=== PATIENT | male | born 1985 | race Caucasian/White ===

== ENCOUNTER 2022-12-10 14:20 | Outpatient (REF) | payer OTHER, SELFPAY ==
[2022-12-10 14:34] LABS: MANUAL DIFF FLAG NO
[2022-12-10 14:49] LABS: Basophils Percent Auto 0.7 % (0-2); Eosinophils Absolute Auto 0.2 X10*3/uL (0.0-0.4); Eosinophils Percent Auto 3.7 % (0-4); Hemoglobin 14.3 g/dl (14.0-18.0); Imm Gran Abs Auto 0.08 X10*3/uL (0.00-0.03); Imm Gran Pct Auto 1.4 % (0.0-0.4); Lymphocytes Absolute Auto 1.3 X10*3/uL (1.2-4.9); Mean Corpuscular HGB Conc 32.5 g/dl (31.0-36.0); Mean Corpuscular Hemoglobin 26.1 pg (27.0-33.0); Mean Corpuscular Volume 80.3 fL (80.0-98.0); Monocytes Percent Auto 18.2 % (2-11); Platelet Count 211 X10*3/uL (160-400); Red Blood Count 5.48 X10*6/uL (4.60-5.80); Red Cell Distribution Width 13.2 % (11.0-16.0); White Blood Count 5.7 X10*3/uL (4.8-10.8)
== END 2022-12-10 14:21 | disposition home or self-care (01) ==
LOC: HO.LAB 14:20
PROVIDERS: Visit Provider Internal Medicine Pulmonary Disease
DX: Z91.09 Other allergy status, other than to drugs and biological substances (principal)
CPT/HCPCS: 36415; 82785; 85025; 86003

== ENCOUNTER 2023-01-06 13:40 | Outpatient (REF) | payer OTHER, SELFPAY | END 2023-01-06 13:41 | disposition home or self-care (01) | LOC: HO.MDS 13:40 | PROVIDERS: Visit Provider Internal Medicine Pulmonary Disease | DX: J45.50 Severe persistent asthma, uncomplicated (principal) | CPT/HCPCS: 96372; J2357 ==

== ENCOUNTER 2023-02-03 13:20 | Outpatient (REF) | payer OTHER, SELFPAY | END 2023-02-03 13:21 | disposition home or self-care (01) | LOC: HO.MDS 13:20 | PROVIDERS: Visit Provider Internal Medicine Pulmonary Disease | DX: J45.50 Severe persistent asthma, uncomplicated (principal) | CPT/HCPCS: 96372; J2357 ==

== ENCOUNTER 2023-03-08 11:59 | Outpatient (REF) | payer OTHER, SELFPAY | END 2023-03-08 12:00 | disposition home or self-care (01) | LOC: HO.MDS 11:59 | PROVIDERS: Visit Provider Internal Medicine Pulmonary Disease | DX: J45.50 Severe persistent asthma, uncomplicated (principal) | CPT/HCPCS: 96372; J2357 ==

== ENCOUNTER 2023-04-06 12:15 | Outpatient (REF) | payer OTHER, SELFPAY | END 2023-04-06 12:16 | disposition home or self-care (01) | LOC: HO.MDS 12:15 | PROVIDERS: Visit Provider Internal Medicine Pulmonary Disease | DX: J45.50 Severe persistent asthma, uncomplicated (principal) | CPT/HCPCS: 96372; J2357 ==

== ENCOUNTER 2023-05-04 09:53 | Outpatient (REF) | payer OTHER, SELFPAY | END 2023-05-04 09:54 | disposition home or self-care (01) | LOC: HO.MDS 09:53 | PROVIDERS: Visit Provider Hospitalist | DX: J45.50 Severe persistent asthma, uncomplicated (principal) | CPT/HCPCS: 96372; J2357 ==

== ENCOUNTER 2023-06-02 10:05 | Outpatient (REF) | payer OTHER, SELFPAY | END 2023-06-02 10:06 | disposition home or self-care (01) | LOC: HO.MDS 10:05 | PROVIDERS: Visit Provider Hospitalist | DX: J45.50 Severe persistent asthma, uncomplicated (principal) | CPT/HCPCS: 96372; J2357 ==

== ENCOUNTER 2023-07-01 09:45 | Outpatient (REF) | payer OTHER, SELFPAY | END 2023-07-01 09:46 | disposition home or self-care (01) | LOC: HO.MDS 09:45 | PROVIDERS: Visit Provider Hospitalist | DX: J45.50 Severe persistent asthma, uncomplicated (principal) | CPT/HCPCS: 96372; J2357 ==

== ENCOUNTER 2023-07-29 10:53 | Outpatient (REF) | payer OTHER, SELFPAY | END 2023-07-29 10:54 | disposition home or self-care (01) | LOC: HO.MDS 10:53 | PROVIDERS: Visit Provider Hospitalist | DX: J45.50 Severe persistent asthma, uncomplicated (principal) | CPT/HCPCS: 96372; J2357 ==

== ENCOUNTER 2023-08-26 13:15 | Outpatient (REF) | payer OTHER, SELFPAY | END 2023-08-26 13:16 | disposition home or self-care (01) | LOC: HO.MDS 13:15 | PROVIDERS: Visit Provider Hospitalist | DX: J45.50 Severe persistent asthma, uncomplicated (principal) | CPT/HCPCS: 96372; J2357 ==

== ENCOUNTER 2023-09-23 10:13 | Outpatient (REF) | payer OTHER, SELFPAY | END 2023-09-23 10:14 | disposition home or self-care (01) | LOC: HO.MDS 10:13 | PROVIDERS: Visit Provider Hospitalist | DX: J45.50 Severe persistent asthma, uncomplicated (principal) | CPT/HCPCS: 96372; J2357 ==

== ENCOUNTER 2023-09-24 09:16 | Outpatient (AMB) | payer OTHER, SELFPAY ==
--- NOTE | 2023-09-24 09:18 | AM.OFFWIN_ITS ---
Intake Vital Signs 09/24/23 09:19 Weight 181 lb BP 118/70 Blood Pressure Location Lt brachial Position Sitting Pulse 118 H Pulse Source Pulse Oximeter Temp 98.4 F Temp Source Temporal Artery Scan Pulse Oximetry (%) 98 Oxygen Delivery Method Room Air Intake Visit Reasons: EP sinus pain pressure congestion Intake Note: pt is here today for sinus pain pressure congestion started 1 week ago Patient Tobacco Use Status: Never used Tobacco Allergies No Known Allergies Allergy (Verified 09/24/23 09:19) Do you need a note to return to daycare/school/sports/work: No HPI HPI Comments History of Present Illness Details 38 y/o male patient who presents to walk in clinic with c/o Sinus and chest congestion x 1 week. 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 Family sick at home with URI Symptoms. PFSH Social History Patient Tobacco Use Status: Never used Tobacco Physical Exam Vital Signs: Last Vital Signs Temp 98.4 F 09/24/23 09:19 Pulse 118 H 09/24/23 09:19 BP 118/70 09/24/23 09:19 Pulse Ox 98 09/24/23 09:19 Oxygen Delivery Method Room Air 09/24/23 09:19 Const General: no acute distress HEENT Head: Yes normocephalic and Yes atraumatic Ears: external ears normal and TM's normal bilaterally General nose exam: Abnormal mucous membranes and turbinates present boggy and erythematous Face and sinus: Yes sinuses nontender Mouth: moist mucous membranes Throat: Yes posterior oropharynx normal Resp Effort & Inspection: normal respiratory effort and able to speak in complete sentences Auscultation: clear to auscultation bilaterally Cardio Rate: regular rate Rhythm: regular rhythm Assessment & Plan Assessment & Plan (1) Acute rhinosinusitis: Code(s): J01.90 - Acute sinusitis, unspecified Plan: - Rest and warm fluids - Acetaminophen for pain relief - OTC cold/cough remedies Orders: Orders SARS-CoV2/FLU/RSV Today J01.90 - Acute sinusitis, unspecified Medications: New 2 azithromycin 500 mg PO DAILY 3 days 3 tabs 0RF J01.90 - Acute sinusitis, unspecified Coding Level of Care Code Est Pt Level 3 (94560) Diagnoses Acute rhinosinusitis J01.90 Time Spent (min) 15
[2023-09-24 09:19] VITALS: BP 118/70; PULSE 118; TEMP 36.9; O2SAT 98
== END 2023-09-24 09:50 | disposition home or self-care (01) ==
PROVIDERS: PCP Nurse Practitioner Family; Visit Provider Nurse Practitioner Family
DX: J01.90 Acute sinusitis, unspecified (principal)
CPT/HCPCS: 99213

== ENCOUNTER 2023-09-24 09:40 | Outpatient (REF) | payer OTHER, SELFPAY ==
[2023-09-24 11:48] LABS: Influenza A PCR NEGATIVE (Negative); Influenza B PCR NEGATIVE (Negative); Resp Syncy Virus RNA Qual PCR NEGATIVE (Negative); SARS COV2 PCR INHOUSE NEGATIVE (Negative)
== END 2023-09-24 09:41 | disposition home or self-care (01) ==
LOC: HO.LAB 09:40
PROVIDERS: Visit Provider Nurse Practitioner Family
DX: Z11.52 Encounter for screening for COVID-19 (principal); Z20.822 Contact with and (suspected) exposure to COVID-19; J01.90 Acute sinusitis, unspecified
CPT/HCPCS: 0241U

== ENCOUNTER 2023-10-21 10:03 | Outpatient (REF) | payer OTHER, SELFPAY ==
[2023-10-21 10:07] VITALS: BP 119/76; PULSE 73; RESP 16; TEMP 36.5; O2SAT 98
[2023-10-21] MEDS: Omalizumab 150 MG/ML SYRINGE 300 MG SUBCUT (10:13)
== END 2023-10-21 10:04 | disposition home or self-care (01) ==
LOC: HO.MDS 10:03
PROVIDERS: Visit Provider Hospitalist
DX: J45.50 Severe persistent asthma, uncomplicated (principal)
CPT/HCPCS: 96372; J2357

== ENCOUNTER 2024-06-16 13:54 | Outpatient (REF) | payer OTHER, SELFPAY ==
[2024-06-19 08:04] LABS: IgA 190 mg/dL (47-310); IgG 1027 mg/dL (600-1640); IgM 57 mg/dL (50-300)
[2024-06-19 16:02] LABS: Immunoglobulin G Subclass 1 374 mg/dL (382-929); Immunoglobulin G Subclass 2 449 mg/dL (241-700); Immunoglobulin G Subclass 3 41 mg/dL (22-178); Immunoglobulin G Subclass 4 69.6 mg/dL (4-86); Immunoglobulin G Total 929 mg/dL (600-1640)
== END 2024-06-16 13:55 | disposition home or self-care (01) ==
LOC: HO.LAB 13:54
PROVIDERS: PCP Nurse Practitioner Family; Visit Provider Internal Medicine Pulmonary Disease
DX: Z91.09 Other allergy status, other than to drugs and biological substances (principal)
CPT/HCPCS: 36415; 82784

== ENCOUNTER 2024-10-12 08:56 | Outpatient (AMB) | payer OTHER, SELFPAY ==
--- NOTE | 2024-10-12 09:22 | AM.OFFWIN_ITS ---
Intake Vital Signs 10/12/24 09:23 Height 5 ft 9 in Weight 184 lb BMI 27.2 BP 110/76 Blood Pressure Location Lt brachial Position Sitting Respiration 14 Pulse 86 Temp 97.7 F Temp Source Oral Pulse Oximetry (%) 99 Oxygen Delivery Method Room Air Intake Visit Reasons: EP infection?? Intake Note: pt is here for parasitic infection, patient has had pinworms in the past. Patient Tobacco Use Status: Never used Tobacco Accompanied by: Self / Same As Patient Allergies No Known Allergies Allergy (Verified 10/12/24 09:23) Do you need a note to return to daycare/school/sports/work: Yes HPI HPI Comments History of Present Illness Details History of Present Illness - The patient is a 39-year-old male pres enting with rectal itching. - Symptoms have escalated over the past few weeks, significantly impacting the patient?s sleep. - There is a relevant history of enterob iasis 15 years ago after probable exposure through consuming sushi, resolved with medication. - Current concerns include potential tra nsmission due to having a [id number] child at home. - Symptoms intensify at night with heat, causing sleep disturbance and discomfort in warm environments. - denies blood in stool Physical Exam General: Cooperative, healthy appearing, comfortable, no acute distress and well developed Orientation: Patient oriented x3 Limitations: No limitations Head: Normal to inspection Ears: Hearing grossly normal bilaterally Nose: Normal external nose present Face and sinus: Normal facial exam Eyes: Appearance normal, both eyes and all related structures Neck: Normal visual inspection and Yes full ROM Respiratory: Normal respiratory effort and able to speak in complete sentences. Skin: No rashes or lesions noted Neuro: Patient oriented x3 Extremities: Normal to inspection [facility] Social History Patient Tobacco Use Status: Never used Tobacco Review of Systems Const All systems reviewed & are unremarkable except as noted in HPI and below Physical Exam Vital Signs: Last Vital Signs Temp 97.7 F 10/12/24 09:23 Pulse 86 10/12/24 09:23 Resp 14 10/12/24 09:23 BP 110/76 10/12/24 09:23 Pulse Ox 99 10/12/24 09:23 Oxygen Delivery Method Room Air 10/12/24 09:23 BMI result Body Mass Index 27.2 Assessment & Plan Assessment & Plan (1) Pinworm infection: Code(s): B80 - Enterobiasis Plan: Albendazole 400 mg daily for three days has been prescribed to manage the patient's rectal itching. Given previous successful treatment with albendazole, this will be the initial approach. If there is no improvement, I discussed the potential addition of ivermectin, though current evidence supports monotherapy. The patient has been instructed to monitor for symptom resolution and follow-up if needed. Prescription was sent to the pharmacy, and we discussed prevention strategies to minimize risk of recurrence. Patient was informed and verbally consented to the use of an ambient scribe for clinic note documentation during this visit. Medications: New albendazole 400 mg (2 x 200 mg) PO DAILY 6 tabs 0RF Coding Level of Care Code New Pt Level 3 (85388) Diagnoses Pinworm infection B80
[2024-10-12 09:23] VITALS: BP 110/76; PULSE 86; RESP 14; TEMP 36.5; O2SAT 99; BMI 27.2
== END 2024-10-12 10:04 | disposition home or self-care (01) ==
PROVIDERS: PCP Nurse Practitioner Family; Visit Provider Physician Assistant
DX: B80 Enterobiasis (principal)

== ENCOUNTER → 2025-01-26 13:04 | Outpatient (BNVA) | payer OTHER, SELFPAY | PROVIDERS: PCP Nurse Practitioner Family; Visit Provider Physician Assistant Medical | DX: Z13.89 Encounter for screening for other disorder (principal) | CPT/HCPCS: 99203 ==

== ENCOUNTER → 2025-01-30 07:48 | Outpatient (BNVA) | payer OTHER, SELFPAY | PROVIDERS: PCP Nurse Practitioner Family; Visit Provider Physician Assistant Medical | DX: Z13.89 Encounter for screening for other disorder (principal) | CPT/HCPCS: 99213 ==

== ENCOUNTER → 2025-02-13 08:03 | Outpatient (BNVA) | payer OTHER, SELFPAY | PROVIDERS: PCP Nurse Practitioner Family; Visit Provider Physician Assistant Medical | DX: Z13.89 Encounter for screening for other disorder (principal) | CPT/HCPCS: 99213 ==

== ENCOUNTER → 2025-03-06 11:15 | Outpatient (BNVA) | payer OTHER, SELFPAY | PROVIDERS: PCP Nurse Practitioner Family; Visit Provider Physician Assistant Medical | DX: Z13.89 Encounter for screening for other disorder (principal) | CPT/HCPCS: 99213 ==

== ENCOUNTER 2025-03-09 11:05 | Outpatient (AMB) | payer OTHER, SELFPAY ==
--- NOTE | 2025-03-09 11:06 | A.OFFPC_ITS ---
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 Accompanied by: Self / Same As Patient Allergies No Known Allergies Allergy (Verified 03/09/25 11:45) Medication List - Last Reconciled 03/09/25 by Delphine De PA-C albuterol sulfate 90 mcg/actuation 2 puffs inhalation 6XD PRN Breo Ellipta 200-25 mcg/dose (fluticasone furoate-vilanterol) 1 ea PO DAILY NS cyclobenzaprine 10 mg PO BEDTIME PRN epinephrine (EpiPen 2-Bobby) 0.3 mg (0.3 mL) IM Q10M PRN 30 days lidocaine 5% 1 patch topically 1 patch daily q 12 hours; leave on most painful area for up to 12 hrs omalizumab (Xolair) 300 mg subcut Q4W 28 days Tobacco use date assessed: 03/09/25 Dental Screening Dental Screen Date: 03/09/25 Did you have a dental visit in the last 12 months?: Yes Did you have a dental problem in the last 6 months where you did not have access to dental care?: No Was dental information given to patient?: Patient has dentist HPI Establish Care HPI Details The patient is a 39-year-old male presenting for a routine wellness visit and management of chronic conditions. The patient has a history of asthma, which is currently well-managed with Breo and albuterol inhalers, as well as Xolair injections. He reports significant improvement in his asthma symptoms since starting these treatments under the care of his analyst food and beverage, Dr. Mazariegos. Approximately one month ago, the patient experienced a back injury while lifting a heavy body at work, resulting in pain under the left scapula. He describes the pain as tightness that is aggravated by activities such as lifting his child or doing yard work. He has not undergone imaging but has been advised to pursue physical therapy, with the possibility of imaging if symptoms persist. The patient is at risk for allergic reactions due to Xolair injections and lamb ies an Epipen as a precaution. Family history is significant for breast cancer in his mother, who underwent surgical treatment and minimal radiation therapy. Additionally, there is a history of bone cancer in his grandmother, although it was not the cause of her . The patient reports urinary dribbling and plans to discuss this with a urologist, potentially in conjunction with a vasectomy consultation. 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 - Family Status: with a two-year -old child and expecting a second child. - Exercise: Limited due to family respon sibilities and back pain. [facility], [facility] Medical History Allergic reaction Pain of left scapula Urinary dribbling Family History Mother Breast cancer Father BP (high blood pressure) Social History Housing: House Alcohol intake: current Alcohol intake frequency: a few times a week Patient Tobacco Use Status: Never used Tobacco service: No Current occupational status: employed Cognitive needs: No Hearing needs: No Vision needs: Yes (rx glasses/contacts) Questionnaire PHQ-9 Over the last 2 weeks, how often have you been bothered by any of the following problems? 1. Little interest or pleasure in doing things: not at all 2. Feeling down, depressed, or hopeless: not at all 3. Trouble falling or staying asleep, or sleeping too much: not at all 4. Feeling tired or having little energy: not at all 5. Poor appetite or overeating: not at all 6. Feeling bad about yourself - or that you are a failure or have let yourself or your family down: not at all 7. Trouble concentrating on things, such as reading the newspaper or watching television: not at all 8. Moving or speaking so slowly that other people could have noticed. Or the opposite - being so fidgety or restless that you have been moving around a lot more than usual: not at all 9. Thoughts that you would be better off or of hurting yourself in some way: not at all Total score: 0 Depression Screening Interpretation: Negative Depression Screening Done: Yes 97459 - PHQ-9 Billing: Yes Source: Developed by Drs. Bradford Kitchen, Kathy Watts, Kenneth Leong and colleagues, with an educational mathew from [employer]. Thrive Questionnaire Date Thrive assessed: 03/09/25 I am a: Patient What is your living situation today?: I have a steady place to live Within the past 12 months, did the food you bought not last and you didn't have the money to get more?: Never true Within the past 12 months, did you worry whether your food would run out before you got money to buy more?: Never true Do you have trouble paying for medicines?: No Do you have trouble getting transportation to medical appointments?: No Do you have trouble paying your heating and electricity bill?: No Do you have trouble taking care of your child, family member or friend?: No Do you have trouble with day-to-day activities such as bathing, preparing meals, shopping, managing finances, etc.?: No Are you currently unemployed and looking for a job?: No Are you interested in more education?: No Please select the resources that you would like help with: None THRIVE Score: 0 AUDIT C Alcohol Use Questionnaire (AUDIT-C) 1. How often do you have a drink containing alcohol?: 2-3 times a week 2. How many drinks containing alcohol do you have on a typical day when you are drinking?: 1 or 2 3. How often do you have six or more drinks on one occasion?: Never Total Score: 3 Score Reviewed/Action Taken: No BRIAN-7 AMB Questionnaire BRIAN-7 Date BRIAN - 7 assessed: 03/09/25 Feeling nervous, anxious, or on edge: 0 = Not at all Not being able to stop or control worryin = Not at all Worrying too much about different things: 0 = Not at all Trouble relaxin = Not at all Being so restless that it is hard to sit still: 0 = Not at all Becoming easily annoyed or irritable: 0 = Not at all Feeling afraid as if something awful might happen: 0 = Not at all Total BRIAN-7 score (0-4 normal; 5-9 mild; 10-14 moderate; 15-21 severe): 0 Source: Developed by Kathy Rea Kurt Kroenke and colleagues, with an educational mathew from [employer]. BRIAN-7 Assessment Billing BRIAN-7 Assessment Tool: BRIAN-7 Assessment 40756 Review of Systems Const Details: - Respiratory: Reports well-controlled asthma symptoms with current medication regimen. Denies dyspnea or wheezing. - Musculoskeletal: Reports pain under the left scapula, aggravated by physical activity. Denies numbness or tingling. - Genitourinary: Reports urinary dribbling. Denies dysuria or hematuria. - Gastrointestinal: Denies black or bloody stools, unintentional weight loss. - Cardiovascular: Denies chest pain or palpitations. All systems reviewed & are unremarkable except as noted in HPI and below Physical exam (Primary Care) Vital Signs: Last Vital Signs Temp 98.0 F 03/09/25 11:08 Pulse 78 03/09/25 11:08 Resp 14 03/09/25 11:08 BP 131/70 03/09/25 11:08 Pulse Ox 99 03/09/25 11:08 Oxygen Delivery Method Room Air 03/09/25 11:08 Care Plan Goal for BP management: <140/90 at Goal BMI result Body Mass Index 26.6 BMI Assessment/Plan discussion: High BMI High, discussed plan: lifestyle, weight reduction, dietary, physical activity, alcohol moderation and other Tobacco/Smoking Status: Tobacco use Status Tobacco use date assessed 03/09/25 03/09/25 11:15 Patient Tobacco Use Status Never used Tobacco 03/09/25 11:15 e-Cigarette/Vaping Use 03/09/25 11:15 PHQ-9: PHQ-9 Score PHQ-9: Total score 0 03/09/25 11:15 Depression Screening Interpretation: Negative Thrive Assessment: Date of Thrive Assessment Date Thrive assessed 03/09/25 03/09/25 11:15 Const Other: Appearance: Alert. Oriented X3. No acute distress. Head: Normal external exam. Normocephalic. Atraumatic. Eyes: Pupils are equal, round, and reactive to light. Extraocular movements intact. Conjunctiva and sclera normal. Eyelids normal. Ears: External auditory canal normal. Tympanic membranes normal. Throat: Pharynx normal. Uvula midline. Moist mucous membranes. Neck: Normal inspection. Neck supple. Full range of motion. No meningeal signs. Cardiovascular: Normal heart rate and rhythm. Heart sound normal. No murmurs noted. Pulses normal throughout. Respiratory: No respiratory distress. Painless inspiration. Breath sounds normal. No wheezes/rales/rhonchi noted. Chest nontender. No accessory muscle usage noted or decreased air movement noted. Abdomen: Soft and nontender. No distention noted. No organomegaly noted. Back: No costovertebral angle tenderness. Full range of motion noted. Tenderness noted under the left scapula. No mid cervical/thoracic or lumbar tenderness step-offs or deformities noted. Skin: Skin warm and dry. Normal skin color. Normal skin turgor. No rashes/lesions/lacerations noted. Extremities: No lower extremity edema. Extremities exhibit normal range of motion. Neuro: Oriented X 3. Coding Level of Care Code New Pt Level 4 (97381) New Pt Prev Care 18-39yr(86461 Diagnoses Asthma J45.909 Pain of left scapula M89.8X1 Allergic reaction T78.40XA Urinary dribbling N39.43 Additional Codes PHQ-9 - 97210 - PHQ-9 Billing: Yes ([id number]) BRIAN-7 Assessment Billing - BRIAN-7 Assessment Tool: BRIAN-7 Assessment 18527 ([id number]) Assessment & Plan Assessment & Plan (1) Asthma: Code(s): J45.909 - Unspecified asthma, uncomplicated Category: Medical Plan: The patient's asthma is well-controlled with Breo and albuterol inhalers, along with Xolair injections. Continued monitoring and adherence to the current medication regimen are recommended. (2) Pain of left scapula: Code(s): M89.8X1 - Other specified disorders of bone, shoulder Category: Medical Plan: The patient is advised to continue physical therapy for back pain management. If symptoms persist, imaging studies may be considered to rule out structural abnormalities. (3) Allergic reaction: Code(s): T78.40XA - Allergy, unspecified, initial encounter Category: Medical Plan: The patient should continue carrying an Epipen as a precaution against potential allergic reactions from Xolair injections. (4) Urinary dribbling: Code(s): N39.43 - Post-void dribbling Category: Medical Plan: The patient plans to consult with a urologist regarding urinary dribbling and potential vasectomy. Plan Plan Patient was informed and verbally consented to the use of an ambient scribe for clinic note documentation during this visit. 1. Asthma The patient's asthma is well-controlled with Breo and albuterol inhalers, along with Xolair injections. Continued monitoring and adherence to the current medication regimen are recommended. 2. Back Pain The patient is advised to continue physical therapy for back pain management. If symptoms persist, imaging studies may be considered to rule out structural abnormalities. 3. Allergic Reaction Risk Due To Xolair Injections The patient should continue carrying an Epipen as a precaution against potential allergic reactions from Xolair injections. 4. Urinary Dribbling The patient plans to consult with a urologist regarding urinary dribbling and potential vasectomy. During the visit, we discussed the patient's asthma management, emphasizing the importance of continuing the current medication regimen, including Breo, albuterol, and Xolair injections. We also addressed the patient's back pain, recommending physical therapy and considering imaging if symptoms persist. The patient was advised to carry an Epipen due to the risk of allergic reactions from Xolair injections. Additionally, we discussed the patient's urinary dribb ling and the plan to consult with a urologist, potentially in conjunction with a vasectomy consultation. Orders: Orders Liver Panel Today Z00.00 - Encounter for general adult medical examination without abnormal findings Magnesium Today Z.00 - Encounter for general adult medical examination without abnormal findings DHEA Sulfate Today Z00.00 - Encounter for general adult medical examination without abnormal findings C Reactive Protein Today Z00.00 - Encounter for general adult medical examination without abnormal findings Complete Blood Count Auto Diff Today Z00.00 - Encounter for general adult medical examination without abnormal findings Comprehensive [place]. Panel Fast Today Z00.00 - Encounter for general adult medical examination without abnormal findings Hemoglobin A1c Today Z00.00 - Encounter for general adult medical examination without abnormal findings Lipid Panel Today Z00.00 - Encounter for general adult medical examination without abnormal findings TSH reflex Free T4 Today Z00.00 - Encounter for general adult medical examination without abnormal findings PSA,Total (Free>4and<10) Today Z00.00 - Encounter for general adult medical examination without abnormal findings Vitamin B12 and Folate Today Z00.00 - Encounter for general adult medical examination without abnormal findings Vitamin D 25-OH Total Today Z00.00 - Encounter for general adult medical examination without abnormal findings Testosterone, Free/Total Today Z00.00 - Encounter for general adult medical examination without abnormal findings Dihydrotestosterone Today Z00.00 - Encounter for general adult medical examination without abnormal findings Referrals Urology Referral N39.43 - Post-void dribbling Patient Instructions: - Continue using Breo and albuterol inhalers as prescribed. - Attend physical therapy sessions for back pain management. - Carry an Epipen at all times due to Xolair injection risk. - Schedule a consultation with a urologist for urinary dribbling and discuss potential vasectomy. - Complete fasting blood work as discussed, ensuring no food or drink except water or black coffee for 10-12 hours prior.
[2025-03-09 11:08] VITALS: BP 131/70; PULSE 78; RESP 14; TEMP 36.7; O2SAT 99; BMI 26.6
== END 2025-03-09 11:41 | disposition home or self-care (01) ==
LOC: HO.HMCSH 11:06
PROVIDERS: PCP Nurse Practitioner Family; Visit Provider Physician Assistant Medical
DX: J45.909 Unspecified asthma, uncomplicated (principal); M89.8X1 Other specified disorders of bone, shoulder; T78.40XA Allergy, unspecified, initial encounter; N39.43 Post-void dribbling; Z00.00 Encounter for general adult medical examination without abnormal findings

== ENCOUNTER → 2025-03-09 11:05 | Outpatient (BNVA) | payer OTHER, SELFPAY | PROVIDERS: PCP Nurse Practitioner Family; Visit Provider Physician Assistant Medical | DX: N39.43 Post-void dribbling (principal); J45.909 Unspecified asthma, uncomplicated; M89.8X1 Other specified disorders of bone, shoulder; Z79.899 Other long term (current) drug therapy; M54.9 Dorsalgia, unspecified; Z91.09 Other allergy status, other than to drugs and biological substances | CPT/HCPCS: 96127 ==

== ENCOUNTER 2025-03-16 07:58 | Outpatient (REF) | payer OTHER, SELFPAY ==
--- OUTSIDE RECORDS SUMMARY | 2025-03-16 08:00 | XMS_ITS | Clinical Summary ---
Author Organization [facility] Address [address] [address] Phone Care Team Providers Care Taper [employer]ed [employer] Layout Name Role Phone Pcp, Unknown Primary Care Provider Unavailabl e Allergies No known active allergies Medications loratadine (CLARITIN) 10 mg tabletIndicatio ns:Chronic nonseasonal allergic rhinitis due to pollen Take 10 mg by mouth daily. Active albuterol 90 mcg/actuation inhaler INHALE 2 PUFFS BY MOUTH EVERY 6 HOURS NEEDED FOR WHEEZE 8 g 5 2 Active beclomethasone (QVAR REDIHALER) 80 mcg/actuation inhaler Inhale 2 puffs into the lungs 2 (two) times a day. 10.6 g 11 2 Active ASMANEX TWISTHALER 220 mcg/ actuation (120) AePB TAKE 2 PUFFS BY MOUTH TWICE A DAY 3 each 3 1 08/14/19 22 Discontinued Active Problems Problem Noted Date Diagnosed Date Nasal polyps 09/30/2017 Assessment & Plan (12/15/2019 2:20 PM EDT): Appreciate ENT involvement. Encourage continue once daily sinus rinse with budesonide. No recent infections. Assessment & Plan (06/22/2019 4:49 PM EST): Nasal polyposis on exam with intermittent history history of intermittent sinus infections, typically seasonally in the Fall. No available imaging. Emphasized importance of topical steroids. Refill for Nasonex 2 sprays each side once daily. If excess congestion, can use nasal decongestant for 3 days. Provided saline sinus rinse bottle with instructions on use. If nasal steroid spray ineffective, consider adding budesonide to nasal rinse. Will refer to ENT for evaluation and any suggestions for ongoing management. Assessment & Plan (12/12/2018 11:09 AM EDT): Chronic nasal polyposis currently not visualized. Stated needs consistency in nasal steroid treatment and use of Singulair. If develops signs or symptoms of sinusitis, recommend aggressive early treatment with nasal decongestant for no more than 2 to 3 days, twice daily nasal steroids and antihistamines along with saline irrigation to minimize risk of infection. If worsening symptoms or evidence of progressive nasal polyp disease, would recommend ENT follow-up at that time. Assessment & Plan (03/09/2018 10:02 AM EDT): Significant improvement. Continue high-dose nasal steroids. Assessment & Plan (09/30/2017 2:00 PM EST): History of prominent nasal polyps currently visualized on anterior exam. We'll start Singulair as above. Mainstay of therapy is intranasal steroids. Start Nasonex 2 sprays each side once daily. Moderate persistent asthma without complication 07/02/2017 Assessment & Plan (08/31/2022 4:58 PM EST): Stable on current regimen under the care of project mgr Assessment & Plan (12/15/2019 2:23 PM EDT): Reasonable stable control. Continue high-dose Asmanex and PRN albuterol. Encouraged consistent use of montelukast particularly during pollen season. If unsure of benefit, could always try stopping over the summer and monitor. Given significant allergies as well as nasal polyps, discussed potential role for injectable therapies, including Xolair or Dupixent. Plan reassess at follow-up, hopefully after stable on maintenance immunotherapy. Assessment & Plan (06/22/2019 4:46 PM EST): Reasonable clinical control clear exam. Due to cost, will change inhaled corticosteroid to high-dose Asmanex, 2 puffs twice daily, in place of Arnuity. Coupon provided. Continue Singulair. Continue albuterol as needed. Repeat exhaled nitric oxide testing at follow-up. Assessment & Plan (12/12/2018 11:13 AM EDT): Clinically well controlled. Continue high-dose Arnuity Ellipta, Singulair, and Pro Air as needed. Patient requesting change from Respiclick back to aerosol due to convenience and irritation from dry powder. Exhaled nitric oxide testing today with gradual improvement over time. Assessment & Plan (03/09/2018 10:02 AM EDT): Asthma currently well controlled now back on high-dose inhaled corticosteroid alone. Given exhaled nitric oxide level, would continue current dose of Arnuity Ellipta. Continue Singulair. Change albuterol to ProAir Respiclick for convenience. Assessment & Plan (10/04/2017 1:17 PM EST): Extensive atopy on allergy skin testing to perennial and seasonal allergens. Recommend start Singulair and Flonase. Given severity of prior allergies and results of testing, we'll proceed with allergy immunotherapy. Injections will be divided by dust mites, mold mix, tree and grass mix, and weed mix. Assessment & Plan (09/30/2017 2:26 PM EST): History consistent with moderate persistent asthma with elevated exhaled nitric oxide but normal office spirometry. We will increase inhaled steroid. Initially increase Flovent to 2 puffs twice daily until completed. Coupon provided for Arnuity Ellipta 200 g 1 puff daily. If unable to acquire, would change to high-dose Asmanex or Pulmicort. Given allergic history and nasal polyps, add Singulair 10 mg daily. Continue albuterol MDI as needed. Chronic nonseasonal allergic rhinitis due to carolyne jani 07/02/2017 Overview (03/09/2018): Allergy skin testing positive to: DM, mouse epi, Mold, and all pollens. Started allergy IT September 2017. Assessment & Plan (08/31/2022 4:59 PM EST): Stable on Loratadine retirement Assessment & Plan (12/15/2019 2:22 PM EDT): Worsening seasonal allergies. Remains on loratadine daily, nasal steroid rinse but inconsistent use of montelukast. Unfortunately, missed last 2 months of allergy injections. Will notify office to resume therapy. Recommend backing down dose to 0.05 mL, with increased per usual schedule weekly, holding dose if needed until spring pollen season passes. Assessment & Plan (06/22/2019 4:47 PM EST): Mild improvement in both allergy and asthma symptoms since initiation of immunotherapy though has yet to reach maintenance. Continue weekly buildup phase. Continue daily oral antihistamine but again strongly advised to avoid oral decongestants except in the setting of acute infection. Encourage use of nasal steroids and saline irrigation. Assessment & Plan (12/12/2018 11:09 AM EDT): Continue allergy immunotherapy, if tolerates, should reach maintenance within the next several months. Encouraged to use Singulair daily as well as Nasonex daily. Assessment & Plan (03/09/2018 10:01 AM EDT): Doing well with allergy immunotherapy. Continue buildup phase as scheduled. Continue Singulair daily. Assessment & Plan (09/30/2017 2:01 PM EST): Prominent allergic symptoms, suspect correlates with asthma activity and vice versa. Starting Singulair and Nasonex as above. Will schedule for allergy skin testing to better assess extent of atopic disease. Gumy-jxo-couswzc antihistamines as needed to resume after completion of allergy skin testing. Resolved Problems Problem Noted Date Diagnosed Date Resolved Date Unspecified open wound, righ t foot, initial encounter 04/08/2022 08/31/2022 Assessment & Plan (04/08/2022 5:08 PM EDT): Wound on plantar right foot without evidence of infection but sensitive painful core. Overlying flapping skin removed to expose wound. Silver alginate dressing applied and Bandaid overlying. Unclear if this started as an inclusion cyst and with pt manipulation became larger in size. Recommend gen surg look at wound to ensure not more than simple wound of foot in otherwise healthy adult. Keep covered as dressed today until healed. Avoid walking barefoot. Immunizations Immunization Administration Dates Next Due COVID-19 (Pre-05/24) Pfizer Vaccine, mRNA, PF 05/14/2021,08/13/2020,07/23/2020 Influenza Quadrivalent Prese rvative Free IM 05/27/2022,05/01/2021,05/10/2019,05/19,06/02/2017 Pneumococcal polysaccharide PPSV23 01/16/2021 Tdap 11/15/2020 Family History Medical History Relation Comments No Known Problems Brother Asthma Father Hypertension Father Hypothyroidism Father Obesity Father Prostate cancer Maternal Grandfather No Known Problems Mother Diabetes Paternal Grandfather Heart disease Paternal Grandfather Dementia Paternal Grandmother Relation Status Comments Brother Father Maternal Grandfather Mother Paternal Grandfather Paternal Grandmother Social History Tobacco Use Types Packs/Day Years Used Date Smoking Tobacco: Never Smokeless Tobacco: Never Tobacco Cessation:Counseling Given: Not Answered Alcohol Use Standard Drinks/Week Comments Yes 0 (1 standard drink = 0.6 oz pur e alcohol) social Child or Family Care Answer Date Record ed Do you have problems with on e of the following making it difficult for you to work, study, or receive health care? No 08/31/2022 Education Answer Date Recorded Are you interested in more education? Not on chichi e 09/09/2024 Are you concerned about learning? Not on file 09/09/2024 No 09/09/2024 No 09/09/2024 Food Answer Date Recorded Within the past 6 months we worried whether our food would run out before we got money to buy more. Never True 08/31/2022 Within the past 6 months the food we bought just didn't last and we didn't have enough money to get more. Never True Residential Stability Answer Date Recor ded What is your housing situation today? I have francisco [employer]ier[facility] diamond 08/31/2022 How many times have you move d in the past 12 months? Zero (I did not move) 08/31/2022 Paying for Meds Answer Date Recorded Do you have trouble paying for medicines? No 08/31/2022 Paying Utility Bills Answer Date Record ed Do you have trouble paying your heating or elect ricity bill? No 08/31/2022 Transportation Answer Date Recorded Has the lack of transportati on kept you from medical appointments or from getting medications? No 08/31/2022 Unemployment Answer Date Recorded Are you currently unemployed or working on a part-time or temporary basis, and looking for work? No 08/31/2022 Digital Access Answer Date Recorded No 12/26/2022 No 12/26/2022 No 12/26/2022 Reliable internet access at home? Not on file 12/26/2022 Device with a working camera? Not on file Intimate Partner Violence Answer Date R ecorded Denied Basic Needs Not on file 08/31/2022 In the past 12 months have y ou been in a relationship with a person who hurts, threatens, or tries to control you? No 08/31/2022 Worried food would run out Not on file 08/31 In the past 12 months have y ou been in a relationship with a person who hurts, threatens, or tries to control you? No 08/31/2022 Sex and Gender Information Value Date Recorded Sex Assigned at Not on file Legal Sex Male 8:22 PM EDT Gender Identity Not on file Sexual Orientation Not on file Last Filed Vital Signs Vital Sign Reading Time Taken Comments Blood Pressure 106/68 08/31/2022 4:24 PM EST Pulse 89 08/31/2022 4:24 PM EST Temperature 36.3 C (97.4 F) 08/31/2022 4:24 PM EST Respiratory Rate 16 06/17/2019 2:39 PM EST Oxygen Saturation 98% 08/31/2022 4:24 PM EST Inhaled Oxygen Concentration - - Weight 84.1 kg (185 lb 6.4 oz) 08/31/2022 4:24 P M EST Height 175.5 cm (5' 9.1 ) 08/31/2022 4:24 PM EST Body Mass Index 27.3 08/31/2022 4:24 PM EST Plan of Treatment Health Maintenance Due Date Last Done Comments LIPID PANEL 1986 HEPATITIS C SCREENING 2004 HIV ONE-TIME SCREENING (18-6 5 YEARS) 2004 SCREENING FOR DIABETES 2021 PNEUMOCOCCAL VACCINES (0-49 years) (2 of 2 - PCV) 01/16/2022 01/16/2021 DEPRESSION SCREENING 08/31/2023 08/31/2022 COVID-19 VACCINE ( - 2023-2 5 season) 2024 05/14/2021, 08/13/2020, 07/23/2020 Adult Td,Tdap Booster 11/15/2030 11/15/2020 SMOKING STATUS SCREENING (On ce After 26 Yrs) Completed 08/31/2022 HEPATITIS A VACCINES Aged Out No long er eligible based on patient's age to complete this topic HIB VACCINES Aged Out No longer eligi ble based on patient's age to complete this topic MENINGOCOCCAL VACCINES (ACWY) Aged Out No longer eligible based on patient's age to complete this topic MENINGOCOCCAL VACCINES (B) Aged Out N o longer eligible based on patient's age to complete this topic Medical Devices Not on file Insurance [employer] ADMINISTRATORS [employer]MIN[employer]AT[employer] Member Subscriber Plan / Payer (Ef fective 2022-Present) Name:Mauro Logan Relation to Subscriber:Self Name:Mauro Logan Payer ID:[id number] (NAIC) Type:PPO Address: [place] [phone] [employer] BENEFITS ADMINISTRATORS [employer]EF[employer]AT[employer] Member Subscriber Plan / Payer (Ef fective 2022-Present) Name:Mauro Logan Relation to Subscriber:Self Name:Mauro Logan Payer ID:[id number] (NAIC) Type:PPO Address: [place] [phone] [employer] BLUE [employer]ITS [employer]MIN[employer]RATORS Care Teams T[employer]ed [employer] Relationship Specialty Start Date End Date Pcp, Unknown PCP - General 03/12/25 Additional Source Comments The information contained in this document represents components of the legal health record. It is not the complete legal health record.[facility]
[2025-03-16 08:19] LABS: MANUAL DIFF FLAG NO
[2025-03-16 08:40] LABS: Hematocrit 44.8 % (42.0-52.0); Hemoglobin 14.6 g/dl (14.0-18.0); Imm Gran Abs Auto 0.09 X10*3/uL (0.00-0.03); Imm Gran Pct Auto 1.3 % (0.0-0.4); Lymphocytes Absolute Auto 1.6 X10*3/uL (1.2-4.9); Mean Corpuscular HGB Conc 32.6 g/dl (31.0-36.0); Mean Corpuscular Hemoglobin 25.7 pg (27.0-33.0); Mean Corpuscular Volume 78.7 fL (80.0-98.0); NRBC Abs Auto 0.000 X10*3/uL (0.0-0.012); NRBC Pct Auto 0.0 /100WBC (0.0-0.2); Platelet Count 210 X10*3/uL (160-400); Red Blood Count 5.69 X10*6/uL (4.60-5.80); White Blood Count 7.2 X10*3/uL (4.8-10.8)
[2025-03-16 08:47] LABS: Hemoglobin A1C 135.8674 umol/L; Total Hemoglobin (HGBA1C) 3865.0431 umol/L
[2025-03-16 09:10] LABS: Alanine Aminotransferase 59 U/L (0-40); Albumin Level 4.8 g/dL (3.5-5.0); Alkaline Phosphatase 84 U/L (39-117); Anion Gap 12 (12-20); Aspartate Amino Transferase 51 U/L (5-37); Blood Urea Nitrogen 12 mg/dL (9-16); Calcium 9.4 mg/dL (8.4-10.2); Carbon Dioxide 28 mmol/L (22-29); Chloride 105 mmol/L (96-108); Cholesterol 204 mg/dL (<200); Estimated Glomerular Filt Rate > 60; HDL Cholesterol 37 mg/dL (>40); Magnesium 2.1 mg/dL (1.6-2.6); Potassium 4.5 mmol/L (3.3-5.1); Sodium 140 mmol/L (135-145); Total Protein 7.6 g/dL (6.5-8.0); Triglycerides 120 mg/dL (<150)
[2025-03-16 09:21] LABS: PSA,Total (Free>4and<10) 0.70 ng/mL (0.00-4.00)
[2025-03-16 09:37] LABS: Folate 11.3 ng/mL (> or = 4.0); Vitamin B12 683 pg/mL (200-900)
[2025-03-22 12:03] LABS: Testosterone, Free 65.0 pg/mL (35.0-155.0)
== END 2025-03-16 07:59 | disposition home or self-care (01) ==
LOC: HO.LAB 07:58
PROVIDERS: Visit Provider Physician Assistant Medical
DX: Z00.00 Encounter for general adult medical examination without abnormal findings (principal); Z12.5 Encounter for screening for malignant neoplasm of prostate; Z13.1 Encounter for screening for diabetes mellitus; Z13.6 Encounter for screening for cardiovascular disorders
CPT/HCPCS: 36415; 80053; 80061; 80076; 82248; 82306; 82607; 82627; 82642; 82746; 83036; 83735; 84153; 84402; 84403; 84443; 85025; 86140

== ENCOUNTER → 2025-04-05 10:51 | Outpatient (BNVA) | payer OTHER, SELFPAY | PROVIDERS: PCP Physician Assistant Medical; Visit Provider Physician Assistant Medical | DX: Z13.89 Encounter for screening for other disorder (principal) | CPT/HCPCS: 99213 ==

== ENCOUNTER → 2025-04-26 08:01 | Outpatient (BNVA) | payer OTHER, SELFPAY | PROVIDERS: PCP Physician Assistant Medical; Visit Provider Physician Assistant Medical | DX: Z13.89 Encounter for screening for other disorder (principal) | CPT/HCPCS: 72072; 99214 ==

== ENCOUNTER 2025-05-08 10:20 | Outpatient (RCR) | payer OTHER, SELFPAY | END 2025-06-18 08:53 | disposition home or self-care (01) | LOC: HO.PT 10:20 | PROVIDERS: PCP Physician Assistant Medical; Visit Provider Physician Assistant Medical | DX: M54.14 Radiculopathy, thoracic region (principal); M62.838 Other muscle spasm; S46.819D Strain of other muscles, fascia and tendons at shoulder and upper arm level, unspecified arm, subsequent encounter | CPT/HCPCS: 97014; 97110; 97140; 97162; 97530; 97535 ==

== ENCOUNTER 2025-05-08 11:40 | Outpatient (AMB) | payer OTHER, SELFPAY ==
--- NOTE | 2025-05-08 11:52 | A.OFFVIS_ITS ---
Intake Visit Reasons: post void dribbling Intake Note: New Patient is present for Post Void Dribbling Urology Rx: none PVR:44 mls Blood Thinners:none Imaging completed: none Legal Records Clerk Required: No Accompanied by: Self / Same As Patient Allergies No Known Allergies Allergy (Verified 05/08/25 11:54) HPI Comments Details: Mauro is a pleasant male. He is a patient of . He is seen for the following urologic conditions - postvoid dribbling - anxiety about health - vasectomy Link to pelvic floor exercises provided He will call after his has delivered cleared us know about and vasectomy Labs reviewed - testosterone low normal for age would consider repeat with LH and estradiol Postvoid dribbling Longstanding Effective stream Short urination time Slight feeling of incomplete bladder emptying Discussed pelvic floor relaxation Pelvic floor exercises provided Vasectomy evaluation The patient presents for vasectomy consultation. He is currently He has fathered - 1 child, with a single partner. The youngest child is - expected in three-week. His partner is aware and permissive for a vasectomy Current form of control is none. 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 Patient education has been provided via AUA video, via printed information, risks of failure, recovery time, bruising and potential pain syndrome have been stressed Discussion today focused on the presence of vasectomy and the risks, benefits and alternatives that are available. Vasectomy as intended as a permanent form of control. Printed information and literature was provided to the patient. Overall there is a one in 2500 failure rate. This can occur at any time after vasectomy. Risks were discussed highlighting hematoma, spermatocele, epididymal congestion, development of sperm antibodies, and development of chronic pain estimated between 1-5%. The procedure was reviewed in detail. Anatomical diagrams of the male genitalia were used to explain the location of the vas deferens. The vas deferens will be transected, the proximal end will be cauterized, a metal clip would be applied to separate the 2 vas deferens ends. It was explained the procedure will be done in the office and takes approximately 10-15 minutes. Less common problems that arise with vasectomy include hematoma, bleeding, allergic reaction to anesthetic, epididymal infection, epididymal congestion, scrotal discomfort, spermatic leak, spermatic granuloma and the possibility of antisperm antibodies. He understands these risks and wishes to proceed. Consent was signed at the office today. He also understands that it takes 12 weeks for sperm to fully clear the system. He will need to provide a semen sample at 12 weeks and if this is not clear a 2nd sample at 16 weeks. Medical clearance to stop using protection will only be provided if he satisfies published criteria for sperm clearance. [facility] Medical History (Updated 05/08/25 @ 17:08 by Arnoldo Sanchez MD) Low HDL (under 40) Hyperlipidemia LDL goal <100 Mild hypercholesterolemia Elevated ALT measurement Elevated AST (SGOT) Family history of breast cancer Allergic reaction Pain of left scapula Urinary dribbling Family History Mother Breast cancer Father BP (high blood pressure) Social History Housing: House Alcohol intake: current Alcohol intake frequency: a few times a week Patient Tobacco Use Status: Never used Tobacco service: No Current occupational status: employed Cognitive needs: No Hearing needs: No Vision needs: Yes (rx glasses/contacts) Review of Systems Const Denies chills and Denies fever(s) Card Reports no additional complaints and Denies syncope Resp Denies cough GI Denies abdominal pain and Denies heartburn Reports as per HPI and Denies change in libido Neuro Denies syncope Psych Denies change in libido Endo Denies change in libido Physical Exam Const General: cooperative, healthy appearing, comfortable and no acute distress Orientation/consciousness: patient oriented x3 HEENT Face and sinus: Yes normal facial exam Mouth: moist mucous membranes Neck Neck: Yes normal visual inspection, Yes full ROM and Yes trachea midline Chest Chest palpation & inspection: normal inspection of the chest Resp Effort & Inspection: normal respiratory effort, able to speak in complete sentences and no respiratory distress GI Inspection: Yes normal to inspection Back/Spine/Pelvis Cervical Spine: normal cervical lordosis Thoracic/Lumbar Spine: thoracic and lumbar spine normal to inspection Skin General skin exam: no rashes or lesions noted Neuro General: patient oriented x3, gait normal, tone normal and moves all extremities Extrem General: Yes normal to inspection and Yes capillary refill normal Office Procedures Post Void Residual Post Residual Void Post Void Residual (PVR): 44 [id number] Void Residual by ultrasound Results AMB Urinalysis, Automated UA Leukoctes 0 Mildred/uL Last Edit by Ruthie Cabezas, MA on 05/08/25 16:31 UA Nitrite Negative Last Edit by Ruthie Cabezas, MA on 05/08/25 16:31 UA Urobilinogen 0.2 mg/dL Last Edit by Ruthie Cabezas, MA on 05/08/25 16:31 UA Protein 0 mg/dL Last Edit by Ruthie Cabezas, MA on 05/08/25 16:31 UA pH 6.0 Last Edit by Ruthie Cabezas, MA on 05/08/25 16:31 UA Blood 0 Mariano/uL Last Edit by Ruthie Cabezas, MA on 05/08/25 16:31 UA Specific [place] 1.015 Last Edit by Ruthie Cabezas, MA on 05/08/25 16:31 UA Ketone Negative Last Edit by Ruthie Cabezas, MA on 05/08/25 16:31 UA Bilirubin 0 mg/dL Last Edit by Ruthie Cabezas, MA on 05/08/25 16:31 UA Glucose 0 mg/dL Last Edit by Ruthie Cabezas, MA on 05/08/25 16:31 Assessment & Plan Assessment & Plan (1) Urinary dribbling: Code(s): N39.43 - Post-void dribbling Category: Medical (2) Anxiety about health: Code(s): R45.89 - Other symptoms and signs involving emotional state Category: Medical Plan He will contact us regarding vasectomy Orders: Orders AMB Urinalysis Automated Today Z13.9 - Encounter for screening, unspecified AMB Post Void Residual by ultrasound Today N39.43 - Post-void dribbling Patient Instructions: This note is constructed using voice recognition software. While every effort has been made to ensure accuracy monument mason errors may have been included. Imaging studies, laboratory and physical exam results were discussed and reviewed in detail. No major barriers to patient understanding were identified. An opportunity to ask questions regarding the treatment plan was provided. All questions were answered. The patient expressed understanding and agreement with the above treatment plan. The patient is aware they should contact our office by phone for worsening of their current condition or the appearance of new urologic symptoms. Compliance is encouraged with any medications and followup testing that is ordered. It is a privilege to participate in the urologic care of your patient. If you have any questions or concerns regarding treatment for the above conditions, or other urologic issues, please do not hesitate to contact me. The office telephone contact is [phone]. Sincerely, Dr Arnoldo Sanchez MD, CHARAN [facility] - Urology Compassionate Specialist Care for the Genitourinary System Coding Level of Care Code New Pt Level 3 (65229) Diagnoses Urinary dribbling N39.43 Anxiety about health R45.89 CPT Codes Post Residual Void - PVR CPT Code: 38072-Khbr Void Residual by ultrasound ([id number])
--- OUTSIDE RECORDS SUMMARY | 2025-05-08 14:47 | XMS_ITS | Clinical Summary ---
Author Organization [facility] Address [address] [address] Phone Care Team Providers Care Training Instructor Name Role Phone Pcp, Unknown Primary Care [...] on current regimen under the care of senior professional services consultant Assessment & Plan (12/15/2019 2:23 PM EDT): [...] (08/31/2022 4:59 PM EST): Stable on Loratadine detention Assessment & Plan (12/15/2019 2:22 PM EDT): [...] to better assess extent of atopic disease. Rgze-iwb-rpwvamm antihistamines as needed to resume after completion [...] HEPATITIS C SCREENING 2004 HIV ONE-TIME SCREENING (18-65 YEARS) 2004 SCREENING FOR DIABETES 2021 PNEUMOCOCCAL VACCINES (0-49 years) (2 of 2 - PCV) 01/16/2022 01/16/2021 DEPRESSION SCREENING 08/31/2023 08/31/2022 INFLUENZA VACCINE (#1) 2025 , 05/01/2021, 05/10/2019, Additional history exists COVID-19 VACCINE (2024- season) 2025 05/14/2021, 08/13/2020, 07/23/2020 Adult Td,Tdap Booster 11/15/2030 11/15/2020 SMOKING STATUS SCREENING (Once After 26 Yrs) Completed 08/31/2022 HEPATITIS A [...] topic Medical Devices Not on file Insurance [employer] BENEFITS ADMINISTRATORS [employer]MIN[employer]RAT[employer]EFITS ADMINISTRATORS Care Teams Training Instructor Relationship Specialty Start Date End Date Pcp, Unknown PCP - General 03/12/25 Additional Source Comments The information contained in this document represents components of the legal health record. It is not the complete legal health record.[facility]
== END 2025-05-08 12:39 | disposition home or self-care (01) ==
LOC: HO.HUSH 11:41
PROVIDERS: PCP Nurse Practitioner Family; Visit Provider Urology
DX: N39.43 Post-void dribbling (principal); R45.89 Other symptoms and signs involving emotional state; Z13.9 Encounter for screening, unspecified
CPT/HCPCS: 99203

== ENCOUNTER → 2025-05-08 11:40 | Outpatient (BNVA) | payer OTHER, SELFPAY | PROVIDERS: PCP Nurse Practitioner Family; Visit Provider Urology | DX: N39.43 Post-void dribbling (principal) | CPT/HCPCS: 51798; 81003 ==

== ENCOUNTER 2025-05-09 12:41 | Outpatient (REF) | payer OTHER, SELFPAY ==
--- NOTE | ~2025-05-09 | MR_ITS ---
EXAM: MRI thoracic spine without contrast TECHNIQUE: Multiplanar multisequence imaging of the thoracic spine was performed covering at least between C7-L1 without contrast. INDICATION: Radiculopathy PRIOR: X-ray 04/26/2025 FINDINGS: Marrow and end-plates: There are no marrow replacing lesions. Alignment: There is mild convex left curvature of the thoracic spine. There is no listhesis. Soft tissues: Paraspinal soft tissues and major vascular structures are unremarkable. Cord: There is no abnormal cord signal. There is no hydrosyringomyelia. The termination of conus medullaris is within normal limits at the level of L1. T7-8: There is disc desiccation with loss of disc height and focal right central extrusion indenting the ventral cord. There is no foraminal narrowing. T8-9: There is disc desiccation and focal right central subarticular zone extrusion indenting the cord without causing foraminal narrowing. T9-10: There is moderate loss of disc height and disc desiccation with focal right central and subarticular zone extrusion that minimally indents the anterior right aspect of the cord without causing foraminal narrowing. Thoracic disc levels not specifically described demonstrated no disc bulge, herniation, spinal stenosis, or foraminal narrowing. MR/MR thoracic spine wo con IMPRESSION: T7-8, T8-9, and T9-10 demonstrate right central/subarticular zone disc herniation indenting the adjacent ventral cord. Electronically signed by: Noel Prince MD 05/09/2025 01:26 PM EDT
== END 2025-05-09 12:42 | disposition home or self-care (01) ==
LOC: HO.MRI 12:41
PROVIDERS: Visit Provider Physician Assistant Medical
DX: M54.14 Radiculopathy, thoracic region (principal); M62.838 Other muscle spasm
CPT/HCPCS: 72146

== ENCOUNTER → 2025-05-09 12:41 | Outpatient (BNV) | payer OTHER, SELFPAY | PROVIDERS: Visit Provider Radiology Diagnostic Radiology | DX: M51.24 Other intervertebral disc displacement, thoracic region (principal) | CPT/HCPCS: 72146 ==

== ENCOUNTER → 2025-05-10 09:58 | Outpatient (BNVA) | payer OTHER, SELFPAY | PROVIDERS: Visit Provider Physician Assistant Medical | DX: Z13.89 Encounter for screening for other disorder (principal) | CPT/HCPCS: 99213 ==

== ENCOUNTER 2025-05-11 11:47 | Outpatient (AMB) | payer OTHER, SELFPAY ==
[2025-05-11 11:50] VITALS: BP 110/66; PULSE 85; O2SAT 99; BMI 26.3
--- NOTE | 2025-05-11 11:50 | MHC.OFFVIS ---
Vital Signs 05/11/25 11:50 Height 5 ft 9.9 in Weight 183 lb BMI 26.3 BP 110/66 Blood Pressure Location Rt brachial Position Sitting Pulse 85 Pulse Source Pulse Oximeter Pulse Oximetry (%) 99 Oxygen Delivery Method Room Air Intake Visit Reasons: Asthma Allergies No Known Allergies Allergy (Verified 05/11/25 11:55) HPI HPI Asthma: Details: 39-year-old gentleman with underlying history of asthma since childhood, follows for severe persistent asthma and seasonal allergies. Patient has been using Xolair, Breo, and albuterol MDI with excellent control of his symptoms. He denies recent exacerbations. [facility] Medical History (Updated 05/10/25 @ 09:21 by Poppy Louis PA-C) Low HDL (under 40) Hyperlipidemia LDL goal <100 Mild hypercholesterolemia Elevated ALT measurement Elevated AST (SGOT) Family history of breast cancer Allergic reaction Pain of left scapula Urinary dribbling Family History Mother Breast cancer Father BP (high blood pressure) Social History Housing: House Alcohol intake: current Alcohol intake frequency: a few times a week Patient Tobacco Use Status: Never used Tobacco service: No Current occupational status: employed Cognitive needs: No Hearing needs: No Vision needs: Yes (rx glasses/contacts) Review of Systems Const Denies daytime sleepiness, Denies excessive sweating, Denies fatigue, Denies fever(s), Denies lethargy, Denies malaise, Denies night sweats, Denies snoring and Denies weight loss Eyes Denies blurry vision and Denies itchy eyes ENT Denies nasal congestion, Denies post nasal drip, Denies sinus pain, Denies sinus pressure and Denies other ( Thrush) Card Denies chest pain, Denies pedal edema, Denies dyspnea, Denies orthopnea and Denies paroxysmal nocturnal dyspnea Resp Denies cough, Denies hemoptysis, Denies excessive phlegm production, Denies dyspnea, Denies snoring and Denies wheezing GI Denies abdominal pain and Denies heartburn Musc Denies myalgias, Denies arthralgias and Denies joint swelling Skin/Breast Denies rash Neuro Denies memory loss and Denies seizure-like activity Psych Denies abnormal sleep pattern, Denies anxiety and Denies memory loss Endo Denies excessive sweating, Denies fatigue and Denies heat intolerance Adam/Lymph Denies easy bruising Aller/Immun Denies itchy eyes, Denies seasonal rhinorrhea and Denies wheezing Physical Exam Vital Signs: Last Vital Signs Pulse 85 05/11/25 11:50 BP 110/66 05/11/25 11:50 Pulse Ox 99 05/11/25 11:50 Oxygen Delivery Method Room Air 05/11/25 11:50 BMI result Body Mass Index 26.3 Const General: no acute distress and alert Nutritional Appearance: not obese Orientation/consciousness: Other orientation findings ( oriented) HEENT Head: Yes atraumatic Eyes General: appearance normal, both eyes and all related structures Sclerae: sclerae normal EOM: EOMs intact bilaterally Neck Neck: Yes supple Lymphatic: no lymphadenopathy noted Resp Effort & Inspection: normal respiratory effort and no use of accessory muscles Auscultation: clear to auscultation bilaterally Cardio Rate: regular rate Rhythm: regular rhythm Heart sounds: no gallops, no murmurs and no rubs Skin General skin exam: other ( warm) Extrem General: No clubbing, No cyanosis and No edema Assessment & Plan Assessment & Plan (1) Severe persistent allergic asthma: Code(s): J45.50 - Severe persistent asthma, uncomplicated Category: Medical Plan: Well controlled on current regimen of Breo, Xolair, and albuterol MDI. Continue current regimen. (2) Environmental allergies: Code(s): Z91.09 - Other allergy status, other than to drugs and biological substances Category: Medical Plan: Well controlled on Xolair. Continue current regimen. Medications: Refilled albuterol sulfate 90 mcg/actuation 2 puffs inhalation 6XD PRN 1 ea 3RF shortness of breath or wheezing Coding Level of Care Code Est Pt Level 4 (39941) Diagnoses Severe persistent allergic asthma J45.50 Environmental allergies Z91.09
== END 2025-05-11 12:04 | disposition home or self-care (01) ==
LOC: HO.HPS 11:48
PROVIDERS: PCP Physician Assistant Medical; Visit Provider Internal Medicine Pulmonary Disease
DX: J45.50 Severe persistent asthma, uncomplicated (principal); Z91.09 Other allergy status, other than to drugs and biological substances
CPT/HCPCS: 99214

== ENCOUNTER → 2025-05-11 11:47 | Outpatient (BNVA) | payer OTHER, SELFPAY | PROVIDERS: PCP Physician Assistant Medical; Visit Provider Internal Medicine Pulmonary Disease | DX: J45.50 Severe persistent asthma, uncomplicated (principal); Z91.09 Other allergy status, other than to drugs and biological substances | CPT/HCPCS: 99212 ==

== ENCOUNTER 2025-05-17 14:15 | Outpatient (AMB) | payer OTHER, SELFPAY ==
--- NOTE | 2025-05-17 14:18 | MHC.OFFVIS ---
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 He reports that this pain does not radiate. However he also reports the pain once in 2 3 weeks in lower thoracic spine which radiates to the anterior chest and upper abdomen bilaterally preventing him from taking slow deep breath. His pain started 3 months ago after lifting injury at work. He is workman's comp patient. His pain level 6/10. He is working full-time. He is unable to sleep normally can not do activities of daily living he is able to take care of himself but he can not function normally. He describes his pain in terms of tissue damage as hot burning scalding shooting sensation. Movements aggravate his pain and heat applications, 10s unit, alleviate his pain minimally. Lidocaine patch 5% application helps his pain moderately. He tried cyclobenzaprine but reported drowsiness. He had an MRI results of which dictated as below. He tried physical therapy and home exercise programs which only aggravated his pain. However he reported that 10s unit is helping his pain minimally. He never had any injections. [facility] Medical History (Updated 05/17/25 @ 14:55 by Donn Matos MD) Low HDL (under 40) Hyperlipidemia LDL goal <100 Mild hypercholesterolemia Elevated ALT measurement Elevated AST (SGOT) Family history of breast cancer Allergic reaction Pain of left scapula Urinary dribbling Family History Mother Breast cancer Father BP (high blood pressure) Social History Housing: House Alcohol intake: current Alcohol intake frequency: a few times a week Patient Tobacco Use Status: Never used Tobacco service: No Current occupational status: employed Cognitive needs: No Hearing needs: No Vision needs: Yes (rx glasses/contacts) Review of Systems Const All systems reviewed & are unremarkable except as noted in HPI and below ENT Reports Normal hearing present Neuro Reports Normal hearing present, Denies Abnormal speech present, Denies confusion and Denies Sensory deficit (Neuro) Psych Denies confusion Physical Exam Vital Signs: Last Vital Signs Pulse 99 05/17/25 14:19 Resp 16 05/17/25 14:19 BP 156/92 H 05/17/25 14:19 Pulse Ox 96 05/17/25 14:19 Oxygen Delivery Method Room Air 05/17/25 14:19 BMI result Body Mass Index 26.3 Const General: no acute distress; No confusion Orientation/consciousness: patient oriented x3 and No confusion Eyes General: appearance normal, both eyes and all related structures Pupils: Equal, round and reactive pupils present EOM: EOMs intact bilaterally Neck Neck: Yes full ROM Chest Chest palpation & inspection: normal inspection of the chest Resp Effort & Inspection: normal respiratory effort, able to speak in complete sentences, normal respiratory pattern, no audible wheezes and no cough Cardio Jugular venous distension: no JVD GI Inspection: Yes normal to inspection Back/Spine/Pelvis Other: There is tenderness on palpation mostly in the projection of T4, T5, T6 vertebral bodies. The T8 T9 and T10 areas are less tender on palpation. Valsalva maneuver does not aggravate his pain at this time. Neuro General: patient oriented x3, gait normal and No confusion Cranial nerves: Yes CN's II-XII intact bilaterally, Yes Equal, round and reactive pupils present, Yes Normal hearing present and Yes Ability to bilaterally elevate shoulders present Speech: No Abnormal speech present Gait exam (Neuro): Normal gait present Motor exam (neuro): 5/5 motor strength present throughout Sensory Exam: No Sensory deficit (Neuro) Extrem General: No pedal edema Psych Speech and movement: Normal speech and movement present Affect: normal affect Attitude: cooperative Thought process: Normal thought process present Thought content: Normal thought content present Insight: Good insight present (Psych) Judgement: Good judgement present (Psych) Results Reviewed Results Reviewed: MRI thoracic spine without contrast TECHNIQUE: Multiplanar multisequence imaging of the thoracic spine was performed covering at least between C7-L1 without contrast. INDICATION: Radiculopathy PRIOR: X-ray 04/26/2025 FINDINGS: Marrow and end-plates: There are no marrow replacing lesions. Alignment: There is mild convex left curvature of the thoracic spine. There is no listhesis. Soft tissues: Paraspinal soft tissues and major vascular structures are unremarkable. Cord: There is no abnormal cord signal. There is no hydrosyringomyelia. The termination of conus medullaris is within normal limits at the level of L1. T7-8: There is disc desiccation with loss of disc height and focal right central extrusion indenting the ventral cord. There is no foraminal narrowing. T8-9: There is disc desiccation and focal right central subarticular zone extrusion indenting the cord without causing foraminal narrowing. T9-10: There is moderate loss of disc height and disc desiccation with focal right central and subarticular zone extrusion that minimally indents the anterior right aspect of the cord without causing foraminal narrowing. Thoracic disc levels not specifically described demonstrated no disc bulge, herniation, spinal stenosis, or foraminal narrowing. IMPRESSION: T7-8, T8-9, and T9-10 demonstrate right central/subarticular zone disc herniation indenting the adjacent ventral cord. Assessment & Plan Assessment & Plan (1) Degeneration, intervertebral disc, thoracic: Code(s): M51.34 - Other intervertebral disc degeneration, thoracic region Category: Medical (2) Spondylosis of thoracic region without myelopathy or radiculopathy: Code(s): M47.814 - Spondylosis without myelopathy or radiculopathy, thoracic region Category: Medical (3) Spondylosis of thoracic spine with radiculopathy: Code(s): M47.24 - Other spondylosis with radiculopathy, thoracic region Category: Medical Plan It looks like that most of the pain problem of this patient related to upper thoracic spine were there is severe tenderness on palpation in upper thoracic vertebra. However the MRI dictated as above can explain the shooting pain from the lower thoracic spine radiating to bilateral anterior chest and upper abdomen. Physical therapy did not help pain of this patient. Minimal help obtained from lidocaine patch and 10s unit. I offered the patient diagnostic medial branch block approximately T4, T5, T6 bilaterally. To establish proper location of the injections I would need to perform palpation under x-ray guidance. If this will be effective to control his pain as a diagnostic procedure sprint PNS could be tried to treat the pain of this patient. Coding Level of Care Code New Pt Level 3 (65110) Diagnoses Degeneration, intervertebral disc, thoracic M51.34 Spondylosis of thoracic region without myelopathy or radiculopathy M47.814 Spondylosis of thoracic spine with radiculopathy M47.24
[2025-05-17 14:19] VITALS: BP 156/92; PULSE 99; RESP 16; O2SAT 96; BMI 26.3
--- OUTSIDE RECORDS SUMMARY | 2025-05-17 17:57 | XMS_ITS | Clinical Summary ---
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 Gwiq-sak-gsmouln antihistamines as needed to resume after completion [...] topic Medical Devices Not on file Insurance [employer] BENEFITS ADMINISTRATORS [employer] BENEFITS ADMINISTRATORS [employer]ITS ADMINISTRATORS Care Teams Sorter Upholstery Parts Relationship Specialty Start Date End Date Pcp, Unknown PCP - General 03/12/25 Additional Source Comments The information contained in this document represents components of the legal health record. It is not the complete legal health record.[facility]
== END 2025-05-17 14:46 | disposition home or self-care (01) ==
LOC: HO.PMC 14:15
PROVIDERS: PCP Physician Assistant Medical; Visit Provider Anesthesiology
DX: M51.34 Other intervertebral disc degeneration, thoracic region (principal); M47.814 Spondylosis without myelopathy or radiculopathy, thoracic region; M47.24 Other spondylosis with radiculopathy, thoracic region
CPT/HCPCS: 99203

== ENCOUNTER → 2025-05-17 14:15 | Outpatient (BNVA) | payer OTHER, SELFPAY | PROVIDERS: PCP Physician Assistant Medical; Visit Provider Anesthesiology | DX: M51.34 Other intervertebral disc degeneration, thoracic region (principal); M47.814 Spondylosis without myelopathy or radiculopathy, thoracic region; M47.24 Other spondylosis with radiculopathy, thoracic region | CPT/HCPCS: 99202 ==

== ENCOUNTER 2025-05-21 09:18 | Outpatient (AMB) | payer OTHER, SELFPAY ==
--- NOTE | 2025-05-21 09:33 | A.SPINEOV_ITS ---
Vital Signs 05/21/25 09:36 Height 5 ft 9 in Weight 175 lb BMI 25.8 Intake Visit Reasons: Thoracic radicular pain Intake Note: Mr. Logan is here today c/o thoracic spine pain. 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 Allergies No Known Allergies Allergy (Verified 05/17/25 14:19) Physical Exam Vital Signs: BMI result Body Mass Index 25.8 Assessment & Plan Assessment & Plan (1) Pain of left scapula: Code(s): M89.8X1 - Other specified disorders of bone, shoulder Category: Medical (2) Thoracic disc herniation: Comment: (T7-8, T8-9 & T9-10 right central/subarticular zone disc herniation indenting adjacent ventral cord - 05/09/25 MRI) Code(s): M51.24 - Other intervertebral disc displacement, thoracic region Category: Medical Plan This is a 39-year-old male, who is employee of [employer], 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 This is a worker's comp case. The patient was in the more, bent down trying to lift a patient up on a stretcher to a standing height from a squatted position when the person who was lifting with him quickly lifted before he was ready and he was stuck carrying the weight of the body on his legs and with his back bent in an awkward position. He immediately felt a pain in the middle of his upper thoracic area. He also has a component that will radiate out to his left subscapular area. It was very uncomfortable, he was having a hard time sleeping, coming to work etc.. He tried some cyclobenzaprine after going to the work connection and that made him too sleepy him made him feel hung over. He was trying things like Tylenol, ibuprofen but they were not helping. He went to physical therapy, and they did some stretching and strengthening with him but he actually felt worse the next day. This thing that seems to work the best is a 10s unit and lidocaine patches. He is frustrated and has had a significant alteration in his quality of life since this happened. He has a young child at home and even doing simple things like lifting and bending over to do dishes, laundry etc. are very difficult. He had an MRI done showing small herniated discs at T7-8 T8-9 and T9-10. He does not report any tingling or numbness in the lower extremities. He does occasionally get pain that will radiate around to his ribs if he takes a deep breath. He saw Dr. Matos who was considering doing median branch blocks on him in the upper thoracic T4-5 area for consideration a Sprint PNS. He came to us today to see if the disc herniations could be the cause of his pain. PMH: Otherwise healthy, has some mild asthma. Social hx: Does not smoke, drink use any recreational drugs. Medications: Claritin, Breo inhaler, albuterol, Flexeril, lidocaine patches and Xolair Allergies: None Physical exam: Awake alert oriented no acute distress, he localizes his pain over the mid to upper thoracic area, radiates out laterally to the left subscapular area. Tenderness to palpation over these areas. Strength in the upper and lower extremities is normal with normal reflexes and gait. Imaging review: Thoracic MRI done here at [place] shows very small disc bulge/herniation with signs of chronic disc desiccation at T7-8, T8-9 and T9-10. There is some slight effacement of the CSF from the spinal cord but no overt compression. I do not see any evidence of disc herniation tracking out into the foramen. Impression: 39-year-old male who is here for worker's comp injury, he was lifting a body on a stretcher in the [facility] from a squatted position to a standing position with another employee when the other person lifted quickly before he was ready, and the weight of the body shifted forward onto him, and he was bent in an awkward position and immediately felt pain in his upper back in the upper thoracic area. It also radiates to the left slightly toward his scapula. His MRI findings show he has degenerative disc disease at T7-8, T8-9 and T9-10. There is a very small centralized disc bulge/herniation, more so on the right. I showed him his MRI, explained to him that it is hard to be 100% certain that this is where symptoms are coming from as there is signs that this is some degree of chronic degeneration here. That being said, because it as more of a centralized disc, that can give some back pain, however where he has his disc herniations is lower in the thoracic spine than where he is localizing it in his upper back. Also, it would be unusual to herniate 3 discs all at the same time in an acute event, especially in the thoracic spine where disc herniations are relatively rare. It sounds to me like it is more musculoskeletal in light of the fact that the 10s unit and lidocaine patches seemed to help. I will review his imaging with Dr. Seaman to see if he has any other thoughts, or if he thinks surgery would be a possibility. Thank you for allowing us to care for your patient. The total time spent with this visit with this patient was 45 minutes reviewing history, physical exam, thoracic imaging review, and implementation of treatment plan or further diagnostic testing Robbie Seaman MD,PhD [facility] Coding Level of Care Code New Pt Level 4 (02938) Diagnoses Pain of left scapula M89.8X1 Thoracic disc herniation M51.24
[2025-05-21 09:36] VITALS: BMI 25.8
--- OUTSIDE RECORDS SUMMARY | 2025-05-21 10:28 | XMS_ITS | Clinical Summary ---
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 Iiop-ksp-rhtozel antihistamines as needed to resume after completion [...] topic Medical Devices Not on file Insurance [employer]MINISTR[employer] BENEFITS ADMINISTRATORS [employer] BENEFITS ADMINISTRATORS [employer] ADMINISTRATORS [employer]MINISTRATORS BLUE [employer]ENEFITS ADMINISTRATORS Care Teams News Videotape Editor Relationship Specialty Start Date End Date Pcp, Unknown PCP - General 03/12/25 Additional Source Comments The information contained in this document represents components of the legal health record. It is not the complete legal health record.[facility]
== END 2025-05-21 10:30 | disposition home or self-care (01) ==
LOC: HO.HNS 09:19
PROVIDERS: PCP Physician Assistant Medical; Referring Provider Physician Assistant Medical; Visit Provider Physician Assistant
DX: M89.8X1 Other specified disorders of bone, shoulder (principal); M51.24 Other intervertebral disc displacement, thoracic region
CPT/HCPCS: 99204

== ENCOUNTER → 2025-05-21 09:18 | Outpatient (BNVA) | payer OTHER, SELFPAY | PROVIDERS: PCP Physician Assistant Medical; Referring Provider Physician Assistant Medical; Visit Provider Physician Assistant | DX: M51.24 Other intervertebral disc displacement, thoracic region (principal); M89.8X1 Other specified disorders of bone, shoulder | CPT/HCPCS: 99202 ==

== ENCOUNTER → 2025-07-09 07:55 | Outpatient (BNVA) | payer OTHER, SELFPAY | PROVIDERS: PCP Physician Assistant Medical; Visit Provider Physician Assistant Medical | DX: Z13.89 Encounter for screening for other disorder (principal) | CPT/HCPCS: 99213 ==